=== PATIENT | female | born 1970 | race Caucasian/White ===

== ENCOUNTER 2019-03-09 06:11 | Emergency (ER) | payer OTHER, SELFPAY ==
[2019-03-09 06:12] VITALS: BP 159/93; PULSE 78; RESP 18; TEMP 36.8; O2SAT 100; BMI 23.3
--- NOTE | 2019-03-09 06:22 | ED.VISSUMM ---
- ER Visit Summary Date of Service: 03/09/19 Chief Complaint: Headache History of Present Illness: The patient is a 49 F with a 3-day history of a headache. It was gradual in onset, at its worst about 24 hours after the onset. Feels just like prior headaches. She really gets them every month around her menstrual cycle. This is true for this episode. No vision change of although she has some photophobia no neck pain or stiffness no fever or chills. Physical Examination: Patient appears in some distress Moist mucous membranes, no obvious facial deformity Supple neck. Regular rate and rhythm without any obvious murmurs Clear lungs bilaterally speaking in full sentences without any obvious respiratory distress Abdomen soft and nontender no guarding or rebound Moves all extremities without any difficulty or pain. Skin does not show any obvious rashes or lesions, no trauma. Alert oriented ?3 with no gross focal deficit Emergency Department Course and Treatment: Patient has a normal neurological exam with a gradual onset of headache and no fever and neck pain. There is no further diagnostic tests, however patient will be referred to neurology as this is happening every month. She will be discharged in stable condition, I will write her Imitrex for next month just in case she cannot see a neurologist by the Disposition: Discharge stable condition Impression: Cephalgia This note was generated with [employer] dictation software. It may contain incorrect words, spelling, and punctuation that were not noted in review of the chart prior to signing ED Disposition - Plan for ED Patient: Disposition: Home or Assisted Living Instructions: ED Cephalgia Unspecified Prescriptions: Sumatriptan Succinate [Imitrex] 25 mg PO X1 #5 tab Referrals: Noel Freedman MD [STAFF PHYSICIAN] - 3-5 Days
--- NOTE | 2019-03-09 06:26 | ED.DCSUM_ITS ---
- ER Visit Summary Date of Service: 03/09/19 Chief Complaint: Headache History of Present Illness: The patient is a 49 F with a 3-day history of a headache. It was gradual in onset, at its worst about 24 hours after the onset. Feels just like prior headaches. She really gets them every month around her m enstrual cycle. This is true for this episode. No vision change of although she has some photophobia no neck pain or stiffness no fever or chills. Physical Examination: Patient appears in some distress Moist mucous membranes, no obvious facial deformity Supple neck. Regular rate and rhythm without any obvious murmurs Clear lungs bilaterally speaking in full sentences without any obvious respiratory distress Abdomen soft and nontender no guarding or rebound Moves all extremities without any difficulty or pain. Skin does not show any obvious rashes or lesions, no trauma. Alert oriented ?3 with no gross focal deficit Emergency Department Course and Treatment: Patient has a normal neurological exam with a gradual onset of headache and no fever and neck pain. There is no further diagnostic tests, however patient will be referred to neurology as this is happening every month. She will be discharged in stable condition, I will write her Imitrex for next month just in case she cannot see a neurologist by the Disposition: Discharge stable condition Impression: Cephalgia This note was generated with [employer] dictation software. It may contain incorrect words, spelling, and punctuation that were not noted in review of the chart prior to signing ED Disposition - Plan for ED Patient: Disposition: Home or Assisted Living Instructions: ED Cephalgia Unspecified Prescriptions: Sumatriptan Succinate [Imitrex] 25 mg PO X1 #5 tab Referrals: Noel Freedman MD [STAFF PHYSICIAN] - 3-5 Days
[2019-03-09] MEDS: 0.9% Normal Saline 1,000 ML 999 ML IV (06:29)
[2019-03-09] MEDS: Ketorolac 30 MG/ML Syringe IV (06:31)
[2019-03-09] MEDS: proCHLORPERazine 10 MG/2 ML Vial IV (06:32)
[2019-03-09] MEDS: DiphenhydrAMINE 50 MG/ML Syringe 25 MG IV ×2 (06:34→06:55)
--- NOTE | 2019-03-09 06:56 | ED.RN ---
PATIENT DID NOT WANT THE MORPHINE HER PAIN IS BETTER IN HER HEAD.
[2019-03-09 07:39] VITALS: BP 136/76; PULSE 83; RESP 166; O2SAT 99
== END 2019-03-09 07:42 | disposition home or self-care (01) ==
LOC: ED 06:39
PROVIDERS: Emergency Provider Emergency Medicine; Family Provider Internal Medicine; PCP Internal Medicine
DX: R51 Headache (principal); H53.149 Visual discomfort, unspecified
CPT/HCPCS: 96361; 96374; 96375; 99284; J7030; A4216

== ENCOUNTER → 2020-07-29 | Outpatient (CLI) | payer OTHER, SELFPAY | END | disposition home or self-care (01) | LOC: LABSPEC 10:34 | PROVIDERS: PCP Internal Medicine; Referring Provider Nurse Practitioner Family; Visit Provider Nurse Practitioner Family | DX: Z03.818 Encounter for observation for suspected exposure to other biological agents ruled out (principal) | CPT/HCPCS: 87635; C9803; U0003 ==

== ENCOUNTER 2023-03-21 16:53 | Emergency (ER) | payer OTHER, SELFPAY ==
[2023-03-21 16:54] VITALS: BP 175/102; PULSE 64; RESP 14; TEMP 36.6; O2SAT 100; BMI 25.2
--- NOTE | 2023-03-21 17:04 | EDS_ITS ---
HPI History of Present Illness Chief Complaint: Flank Pain Informant: patient Onset/Context/Timing Onset: Days Context: Gradual Onset Narrative Narrative: Patient presents with 2 days of right flank pain. She points to the lateral portion of the right upper flank and describing her area of pain. Pain is stated in that same location and has not radiated around her abdomen. She has no GI or symptoms. No fever or chills. Pain does not change with eating. She denies history of kidney stones. PFSH PFS Medical History (Updated 03/21/23 @ 18:[address] Carol Michaud MD) GERD (gastroesophageal reflux disease) Migraine Medical History no medical history no medical history Home Medications hydrocodone-acetaminophen 5-325mg 5mg-325mg 1 tab PO Q6H PRN PRN Pain 3 days #10 TABLETS 03/21/23 [Rx Last Taken Unknown] naproxen 500 mg tablet (Naprosyn) 500 mg PO BID PRN pain #20 tabs 03/21/23 [Rx Last Taken Unknown] Allergy/AdvReac Type Severity Reaction Status Date / Time No Known Allergies Allergy Verified 03/21/23 16:54 Social History Smoking Status: Never smoker ROS ROS ED Constitutional Constitutional ED: Denies chills or fever(s) Eyes Eyes: Denies discharge from eye(s) ENT ENT ED: Denies discharge from eye(s), rhinorrhea or sore throat Cardiovascular Cardiovascular: Denies chest pain or palpitations Respiratory/Chest Respiratory/Chest: Denies cough or dyspnea Gastrointestinal Gastrointestinal: Denies abdominal pain, diarrhea, nausea or vomiting Genitourinary Genitourinary ED: Denies difficulty urinating or dysuria Musculoskeletal Musculoskeletal: Reports back pain; Denies extremity pain Integumentary Denies Abrasions or rash Neurologic Neurologic: Denies headache(s) or weakness Psychiatric Psychiatric: Denies anxiety or depression Allergic/Immunologic Allergic/Immunologic ED: Denies lip swelling or urticaria EXAM Physical Exam Const Vital Signs: 03/21/23 16:54 03/21/23 17:10 Temperature 98 F Temperature Source Temporal Pulse Rate 64 Respiratory Rate 14 Respiratory Effort Normal Non-Labored Respiratory Pattern Normal Blood Pressure 175/102 H Blood Pressure Mean 126 Pulse Ox 100 Oxygen Delivery Method Room Air Positive well nourished and well developed General Appearance ED: well developed HEENT Reports moist mucous membranes Eyes EOMs intact bilaterally Neck no lymphadenopathy Chest Wall inspection of chest normal Chest Narrative: Reproducible tenderness in the posterior lateral lower ribs on the right. No crepitus. Resp normal respiratory effort and clear to auscultation bilaterally Cardio regular rate and regular rhythm GI normal to inspection, nondistended, normoactive bowel sounds Back/Spine no CVA tenderness Neuro oriented x3 and no sensory deficits noted Motor Exam: strength 5/5 throughout Skin no rashes or lesions noted MDM MDM MDM Narrative Medical decision making narrative: Patient does not have true CVA tenderness and does not have pain that wraps around the flank area. She has reproducible tenderness along the lateral posterior lower right ribs. In light of this 2 view chest x-ray is obtained to evaluate ribs as well as costophrenic angle of the lungs. Labwork obtained to evaluate for leukocytosis, anemia, and electrolyte derangement. Urinalysis obtained to evaluate for infection/hematuria. Patient given Toradol for pain. Lab Data Attestation: I reviewed the patient's lab results. Labs: Laboratory Results - last 24 hr 03/21/23 03/21/23 03/21/23 17:15 17:15 17:15 WBC 7.9 RBC 4.70 Hgb 13.5 Hct 42.6 MCV 90.6 MCH 28.7 MCHC 31.7 L RDW Std Deviation 42.7 RDW Coeff of Yaw 12.9 Plt Count 210 MPV 11.8 Immature Gran % (Auto) 0.400 Neut % (Auto) 59.6 Lymph % (Auto) 28.1 [place] % (Auto) 8.0 Eos % (Auto) 2.9 Baso % (Auto) 1.0 Absolute Neuts (auto) 4.7 Absolute Lymphs (auto) 2.22 Nucleated RBC % 0 Sodium 142 Potassium 3.5 Chloride 108 H Carbon Dioxide 27.0 Anion Gap 7 BUN 13 Creatinine 0.81 Estim Creat Clear Calc 62.07 Est GFR (MDRD) Af Amer 94 Est GFR (MDRD) Non-Af 78 BUN/Creatinine Ratio 16.0 Glucose 79 Calcium 9.0 Total Bilirubin 0.50 Direct Bilirubin 0.15 AST 13 L ALT 16 Alkaline Phosphatase 66 Total Protein 7.4 Albumin 3.7 Globulin 3.7 Urine Color Yellow Urine Clarity Clear Urine pH 7.0 Ur Specific [place] 1.010 Urine Protein Negative Urine Glucose (UA) Normal Urine Ketones Negative Urine Occult Blood Negative Urine Nitrite Negative Urine Bilirubin Negative Urine Urobilinogen Normal Ur Leukocyte Esterase Negative Urine RBC 0 SEEN Urine WBC 0 SEEN Ur Squamous Epith Cells 0 SEEN Urine Bacteria 0 SEEN Urine Mucus 0 SEEN Radiography Chest X-Ray - ED: 2 View, Read by ED Physician, Normal, Heart, Lungs and Mediastinum Diagnostic Testing: Clinical Impression(s) from Imaging Studies Chest X-Ray 03/21/23 17:23 IMPRESSION: No evidence of active intrathoracic disease. Electronically Signed: Reina Perez MD at 17:43 EDT , Treatment and Re-Evaluation :: CBC and chemistry studies are unremarkable. Renal function is normal. LFTs are normal. Urinalysis is clean with no evidence of blood or infection. Two-view chest x-ray per my interpretation reveals no acute abnormality. Radiology interpretation is reviewed and agrees. I discussed with the patient that I would like to try to avoid radiation with a CT scan if possible. My suspicion that she has a kidney stone is low given her exam findings and work-up. We will treat her now with naproxen and I will send a few [place] for breakthrough pain. She is driving so will not be given narcotics at this time. We discussed reasons to return and advised that we can always obtain a CT scan if needed at that time. I believe her symptoms are more consistent with chest wall strain. Addendum: Patient's blood pressure was elevated on arrival. It remains elevated around 166 systolic at discharge. She states that her blood pressure has been reading high lately in multiple different doctors offices. Her doctor has been following it closely and has not yet started on any medication. She will follow-up with her PCP for further recommendations. Discharge Plan Triage Chief Complaint: Flank Pain ED Provider: Carol Michaud Dx/Rx/DC Orders Clinical Impression: Strain of chest wall Instructions: ED Chest Wall Strain Prescriptions: New naproxen [Naprosyn] 500 mg tablet 500 mg PO BID PRN (Reason: pain) Qty: 20 0RF hydrocodone-acetaminophen 5-325 mg tablet 1 tab PO Q6H PRN PRN (Reason: Pain) 3 Days Qty: 10 0RF Primary Care Provider: Manan Lomax Referrals: Manan Lomax MD [Primary Care Provider] - 3-5 Days if not improving Disposition Disposition: Home, Self Care Discharge Date/Time: 03/21/23 18:42
[2023-03-21] MEDS: Ketorolac 30 MG/ML Syringe IV (17:18)
--- NOTE | 2023-03-21 17:23 | RAD_ITS ---
INDICATION: right posterior lower rib pain EXAMINATION/TECHNIQUE: X-RAY - XR Chest 2 Views COMPARISON: FINDINGS: LINES/DEVICES: None. LUNGS: No consolidation. No pneumothorax. MEDIASTINUM: Unremarkable. CARDIAC SIL[place]ETTE: Not enlarged. BONES AND SOFT TISSUES: No acute abnormalities. RAD/Chest PA and Lateral IMPRESSION: No evidence of active intrathoracic disease. Electronically Signed: Reina Perez MD at 17:43 EDT ,
[2023-03-21 17:27] LABS: Bacteria 0 SEEN /hpf (None Seen); Mucous, Urine 0 SEEN /hpf (<or=2+); Red Blood Cells-Urine 0 SEEN /hpf (0-5); Squamous Epithelial Cells - UA 0 SEEN /hpf (5-10); White Blood Cells 0 SEEN /hpf (0-5)
[2023-03-21 17:42] LABS: Absolute Lymphocyte Count 2.22 X10^3/uL (0.83-4.51); Absolute Neutrophil Count 4.7 X10^3/uL (2.0-7.7); Basophil# 0.08 X10^3/uL; Eosinophil# 0.23 X10^3/uL; Eosinophils% 2.9 % (0-5); Hematocrit 42.6 % (37-47); Hemoglobin 13.5 g/dL (12.0-15.0); Lymphocyte # 2.22 X10^3/ul (0.83-4.51); Lymphocyte % 28.1 % (19-41); Mean Corp Hgb Conc 31.7 g/dL (32-36); Mean Corpuscular Hgb 28.7 pg (27.0-32.0); Mean Corpuscular Volume 90.6 fL (81-99); Mean Platelet Vol. 11.8 fl (6.2-12.0); Monocyte# 0.63 X10^3/uL; NRBC Flagged by Analyzer 0 % (0-5); Neutrophil % 59.6 % (47-70); Platelet Count 210 K/mm3 (150-450); RBC Distribution Width CV 12.9 % (11.6-14.6); RBC Distribution Width SD 42.7 fl (35.1-43.9); White Blood Count 7.9 K/mm3 (4.4-11.0)
[2023-03-21 17:43] LABS: Color, Urine Yellow (Yellow); Glucose, Dipstick Normal (Normal); Ketone-Dipstick Negative (Negative); Leukocyte Esterase-Dipstick Negative /ul (Negative); Nitrite-Dipstick Negative (Negative); Occult Blood-Urine Negative /ul (Negative); Protein-Dipstick Negative (Negative); Urine Bilirubin Dipstick Negative (Negative); Urine Clarity Clear (Clear); Urine Urobilinogen Normal (Normal)
[2023-03-21 18:05] LABS: AST(SGOT) 13 U/L (15-37); Alanine Aminotransfer ALT/SGPT 16 U/L (13-56); Albumin, Serum 3.7 g/dL (3.2-5.0); Alkaline Phosphatase 66 U/L (45-117); Anion Gap 7 (5-15); BUN 13 mg/dL (7-18); Bilirubin, Direct 0.15 mg/dL (0.00-0.30); Chloride 108 mmol/L (98-107); Creatinine, Serum 0.81 mg/dL (0.55-1.02); EST Glomerular Filtration Rate 78 mL/min (>60); Est Glom Filt Rate - Afr Amer 94 mL/min (>60); Estimated Creatinine Clearance 62.07 ml/min; Globulin 3.7 g/dL (2.2-4.2); Glucose 79 mg/dL (74-106); Potassium 3.5 mmol/L (3.5-5.1); Protein, Total 7.4 g/dL (6.4-8.2); Sodium Level 142 mmol/L (136-145)
== END 2023-03-21 18:42 | disposition home or self-care (01) ==
PROVIDERS: Emergency Provider Emergency Medicine; PCP Internal Medicine; Visit Provider Emergency Medicine
DX: S29.011A Strain of muscle and tendon of front wall of thorax, initial encounter (principal)
CPT/HCPCS: 71046; 80048; 80076; 81001; 85025; 96374; 99283; A4216